=== PATIENT | male | born 1965 | race Caucasian/White ===

== ENCOUNTER 2022-12-18 09:24 | Emergency (ER) | payer MEDICAID ==
[2022-12-18] MEDS ORDERED: Ketorolac 30 MG/ML SDV IM ONE (11:06)
[2022-12-18 11:18] LABS: BASOPHILS ABSOLUTE AUTO 0.04 K/uL (0.00-0.10); BASOPHILS PERCENT AUTO 0.5 % (0.1-1.3); EOSINOPHILS ABSOLUTE AUTO 0.19 K/uL (0.00-0.40); EOSINOPHILS PERCENT AUTO 2.4 % (0.0-5.4); HEMATOCRIT 43.2 % (38.4-49.7); IMMATURE GRAN ABSOLUTE AUTO 0.03 K/uL (0.00-0.23); IMMATURE GRAN PERCENT AUTO 0.4 % (0.0-0.7); LYMPHOCYTES ABSOLUTE AUTO 1.41 K/uL (0.8-3.3); LYMPHOCYTES PERCENT AUTO 17.6 % (11.4-47.7); MEAN CORPUSCULAR HGB CONC 34.7 g/dL (31.6-35.5); MEAN CORPUSCULAR VOLUME 92.1 fL (81.4-99.0); MONOCYTES ABSOLUTE AUTO 0.56 K/uL (0.20-0.90); NEUTROPHILS PERCENT AUTO 72.1 % (40.0-78.1); PLATELET COUNT,PLT 267 K/uL (130-375); RED BLOOD CELL COUNT 4.69 M/uL (4.14-5.76)
[2022-12-18 11:38] LABS: A/G RATIO 1.2 (1.2-2.2); ALANINE AMINOTRANSFERASE,ALT 60 U/L (12-78); ALBUMIN 4.2 g/dL (3.4-5.0); ALKALINE PHOSPHATASE 60 U/L (46-116); ASPARTATE AMNIOTRANSFERASE,AST 35 U/L (15-37); BILIRUBIN TOTAL 0.6 mg/dL (0.2-1.0); BLOOD UREA NITROGEN,BUN 10 mg/dL (7-18); CALCIUM 8.8 mg/dL (8.5-10.1); CARBON DIOXIDE,CO2 27 mmol/L (21-32); CHLORIDE,CL 102 mmol/L (100-108); EST CRCL DRUG DOSING (CG) 74.36 mL/min; ESTIMATED GFR 87 mL/min (>60); GLUCOSE RANDOM 106 mg/dL (74-106); POTASSIUM,K 4.1 mmol/L (3.6-5.2); PROTEIN TOTAL,TP 7.8 g/dL (6.4-8.2); SODIUM,NA 137 mmol/L (140-148)
[2022-12-18 11:41] LABS: ANION GAP 12.1 mmol/L (5.0-14.0)
[2022-12-18 11:49] LABS: SEDIMENTATION RATE MANUAL 8 mm/hr (0-20)
[2022-12-18 12:06] LABS: LYME AB IgG Negative (Negative); LYME AB IgM Negative (Negative)
[2022-12-18] MEDS ORDERED: oxyCODONE 5 MG Tab PO ONE (12:21)
== END 2022-12-18 14:24 | disposition home or self-care (01) ==
LOC: JP.ED 09:24
DX: M25.561 Pain in right knee (principal); Z86.16 Personal history of COVID-19
CPT/HCPCS: 36415; 73562; 80053; 85025; 85651; 86140; 86618; 93926; 96372; 99284; A9270; J1885